=== PATIENT | female | born 2000 | race Caucasian/White ===

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

== ENCOUNTER 2018-02-13 07:50 | Emergency (ER) | payer MEDICAID ==
[2018-02-13 08:19] LABS: HCG URINE POSITIVE (NEGATIVE)
[2018-02-13 08:41] LABS: APPEARANCE CLOUDY (CLEAR); BILIRUBIN NEGATIVE (NEGATIVE); COLOR DK YELLOW (YELLOW); GLUCOSE NEGATIVE (NEGATIVE); KETONE LARGE mg/dL (NEGATIVE); NITRITE NEGATIVE (NEGATIVE); PROTEIN 3+ mg/dL (NEGATIVE); SPECIFIC GRAVITY 1.025 (1.005-1.020); UROBILINOGEN NORMAL (NORMAL)
[2018-02-13 08:43] LABS: BACTERIA MODERATE /hpf (NONE SEEN); MUCUS >1+ /lpf (NONE SEEN); RED CELLS - URINE 25-50 /hpf (0-5); WHITE CELLS - URINE >50 /hpf (0-5)
== END 2018-02-13 08:55 | disposition home or self-care (01) ==
LOC: D.ER 07:50
PROVIDERS: Emergency Medicine
DX: R31.9 Hematuria, unspecified (principal); N39.0 Urinary tract infection, site not specified

== ENCOUNTER 2018-03-01 16:04 | Emergency (ER) | payer MEDICAID ==
[~2018-03-01] VITALS: Ht 170.2 cm; Wt 79.5 kg
[2018-03-01 16:09] VITALS: Ht 170.2 cm; Wt 79.5 kg
[2018-03-01 18:47] LABS: APPEARANCE CLEAR (CLEAR); BILIRUBIN NEGATIVE (NEGATIVE); COLOR STRAW (YELLOW); GLUCOSE NEGATIVE (NEGATIVE); KETONE NEGATIVE (NEGATIVE); NITRITE NEGATIVE (NEGATIVE); PROTEIN NEGATIVE (NEGATIVE); UROBILINOGEN NORMAL (NORMAL)
[2018-03-01 18:51] LABS: BASOPHILS 0.4 % (0-2); EOSINOPHILS 2.3 % (0-7); HEMATOCRIT 32.9 % (36.0-48.0); HEMOGLOBIN 10.3 g/dL (12-16); IMMATURE GRANULOCYTES 0.1 % (0-5); MCH 25.1 pg (26.0-34.0); MCHC 31.3 g/dL (31.0-37.0); MCV 80.2 fL (80.0-100.0); MEAN PLATELET VOLUME 10.4 fL (7.4-10.4); MONOCYTES 7.9 % (2-11); NEUTROPHILS 57.3 % (40-80); PLATELET COUNT 306 10x3/uL (130-400); RDW 14.3 % (11.5-14.5); WBC 7.4 10x3/uL (4.8-10.8)
[2018-03-01 19:07] LABS: ALBUMIN 3.5 g/dL (3.4-5.0); ALKALINE PHOSPHATASE 56 U/L (46-116); ALT (SGPT) 19 U/L (10-68); CALC OSMOLALITY 274 mosm/kg (275-300); CALCIUM 8.9 mg/dL (8.5-10.1); CARBON DIOXIDE 24.9 mmol/L (21.0-32.0); CHLORIDE - SERUM 104 mmol/L (98-107); CREATININE - SERUM 0.6 mg/dL (0.6-1.3); GLUCOSE 86 mg/dL (74-106); PROTEIN - SERUM 6.7 g/dL (6.4-8.2); SODIUM 139 mmol/L (136-145); UREA NITROGEN 8 mg/dL (7-18); eGFR NON AFRICAN AMERICAN > 90 mL/min (90-120)
[2018-03-01 19:10] LABS: BILIRUBIN - TOTAL 0.09 mg/dL (0.2-1.3)
[2018-03-01 19:32] LABS: HCG - QUANTITATIVE (MATERNAL) 21852 mIU/mL
[2018-03-01 21:54] VITALS: BP 131/85
== END 2018-03-01 21:48 | disposition home or self-care (01) ==
LOC: D.ER 16:04
PROVIDERS: Emergency Medicine
DX: O20.0 Threatened abortion (principal); Z3A.08 8 weeks gestation of pregnancy; F17.200 Nicotine dependence, unspecified, uncomplicated; R10.9 Unspecified abdominal pain

== ENCOUNTER 2018-03-05 17:54 | Emergency (ER) | payer MEDICAID ==
[~2018-03-05] VITALS: Ht 170.2 cm; Wt 79.5 kg
[2018-03-05 18:25] VITALS: Ht 170.2 cm; Wt 79.5 kg
[2018-03-05 18:52] LABS: BASOPHILS 0.4 % (0-2); EOSINOPHILS 2.7 % (0-7); HEMATOCRIT 31.3 % (36.0-48.0); IMMATURE GRANULOCYTES 0.2 % (0-5); LYMPHOCYTES 32.5 % (15-50); MCH 25.3 pg (26.0-34.0); MCHC 31.9 g/dL (31.0-37.0); MEAN PLATELET VOLUME 10.3 fL (7.4-10.4); NEUTROPHILS 56.2 % (40-80); PLATELET COUNT 303 10x3/uL (130-400); RBC 3.96 10x6/uL (4.00-5.40); RDW 14.5 % (11.5-14.5); WBC 5.6 10x3/uL (4.8-10.8)
[2018-03-05 18:58] LABS: APPEARANCE CLOUDY (CLEAR); BILIRUBIN NEGATIVE (NEGATIVE); COLOR YELLOW (YELLOW); GLUCOSE NEGATIVE (NEGATIVE); KETONE NEGATIVE (NEGATIVE); NITRITE NEGATIVE (NEGATIVE); PROTEIN NEGATIVE (NEGATIVE); UROBILINOGEN NORMAL (NORMAL)
[2018-03-05 18:59] LABS: BACTERIA MODERATE /hpf (NONE SEEN); RED CELLS - URINE 0-5 /hpf (0-5); WHITE CELLS - URINE 0-5 /hpf (0-5)
[2018-03-05 19:17] LABS: ALBUMIN 3.7 g/dL (3.4-5.0); ALKALINE PHOSPHATASE 68 U/L (46-116); ALT (SGPT) 18 U/L (10-68); CALC OSMOLALITY 279 mosm/kg (275-300); CALCIUM 9.3 mg/dL (8.5-10.1); CHLORIDE - SERUM 106 mmol/L (98-107); CREATININE - SERUM 0.7 mg/dL (0.6-1.3); GLUCOSE 91 mg/dL (74-106); POTASSIUM - SERUM 3.8 mmol/L (3.5-5.1); PROTEIN - SERUM 6.6 g/dL (6.4-8.2); SODIUM 141 mmol/L (136-145); UREA NITROGEN 10 mg/dL (7-18); eGFR NON AFRICAN AMERICAN > 90 mL/min (90-120)
[2018-03-05 19:38] LABS: HCG - QUANTITATIVE (MATERNAL) 17101 mIU/mL
[2018-03-05] MEDS ORDERED: MACROBID100 MG PO (23:39)
[2018-03-06 00:55] VITALS: BP 123/79
== END 2018-03-06 00:56 | disposition home or self-care (01) ==
LOC: D.ER 17:54
PROVIDERS: Family Medicine
DX: O20.0 Threatened abortion (principal); Z3A.01 Less than 8 weeks gestation of pregnancy; N39.0 Urinary tract infection, site not specified

== ENCOUNTER 2018-11-01 21:48 | Emergency (ER) | payer MEDICAID ==
[~2018-11-01 21:48] MED LIST: MACROBID100 MG PO
[2018-11-01 21:53] VITALS: Ht 170.2 cm
[2018-11-01 22:24] LABS: BASOPHILS 0.1 % (0-2); EOSINOPHILS 0.8 % (0-7); HEMATOCRIT 33.9 % (36.0-48.0); HEMOGLOBIN 11.4 g/dL (12-16); IMMATURE GRANULOCYTES 0.3 % (0-5); LYMPHOCYTES 12.9 % (15-50); MCH 26.8 pg (26.0-34.0); MCHC 33.6 g/dL (31.0-37.0); MCV 79.6 fL (80.0-100.0); MEAN PLATELET VOLUME 10.5 fL (7.4-10.4); MONOCYTES 4.2 % (2-11); NEUTROPHILS 81.7 % (40-80); RBC 4.26 10x6/uL (4.00-5.40); RDW 15.2 % (11.5-14.5); WBC 7.8 10x3/uL (4.8-10.8)
[2018-11-01 22:26] LABS: PLATELET COUNT 221 10x3/uL (130-400)
[2018-11-01 22:44] LABS: ALBUMIN 3.4 g/dL (3.4-5.0); ALKALINE PHOSPHATASE 63 U/L (46-116); ALT (SGPT) 44 U/L (10-68); BILIRUBIN - TOTAL 0.25 mg/dL (0.2-1.3); CALC OSMOLALITY 270 mosm/kg (275-300); CALCIUM 8.6 mg/dL (8.5-10.1); CHLORIDE - SERUM 102 mmol/L (98-107); CREATININE - SERUM 0.5 mg/dL (0.6-1.3); GLUCOSE 94 mg/dL (74-106); POTASSIUM - SERUM 3.4 mmol/L (3.5-5.1); PROTEIN - SERUM 6.9 g/dL (6.4-8.2); SODIUM 136 mmol/L (136-145); UREA NITROGEN 9 mg/dL (7-18); eGFR NON AFRICAN AMERICAN > 90 mL/min (90-120)
[2018-11-01 23:10] LABS: AMYLASE - SERUM 46 U/L (25-115); HCG - QUANTITATIVE (MATERNAL) 81088 mIU/mL; LIPASE 82 U/L (73-393)
[2018-11-01 23:11] LABS: TROPONIN-I < 0.017 ng/mL (0.000-0.060)
[2018-11-01 23:18] LABS: APPEARANCE CLOUDY (CLEAR); BACTERIA NONE SEEN /hpf (NONE SEEN); BILIRUBIN NEGATIVE (NEGATIVE); COLOR YELLOW (YELLOW); GLUCOSE NEGATIVE (NEGATIVE); KETONE SMALL mg/dL (NEGATIVE); NITRITE NEGATIVE (NEGATIVE); PROTEIN TRACE mg/dL (NEGATIVE); RED CELLS - URINE NONE SEEN /hpf (0-5); UROBILINOGEN NORMAL (NORMAL); WHITE CELLS - URINE 0-5 /hpf (0-5)
[2018-11-01 23:19] LABS: MUCUS <1+ /lpf (NONE SEEN); URIC ACID CRYSTALS OCC /hpf (NONE SEEN)
[2018-11-02] MEDS ORDERED: MACROBID100 MG PO (00:24)
[2018-11-02 00:34] VITALS: BP 119/69
== END 2018-11-02 00:36 | disposition home or self-care (01) ==
LOC: D.ER 21:48
PROVIDERS: Family Medicine
DX: O23.41 Unspecified infection of urinary tract in pregnancy, first trimester (principal); Z3A.12 12 weeks gestation of pregnancy; R11.0 Nausea

== ENCOUNTER → 2018-11-24 | Emergency (ER) | payer MEDICAID ==
[~2018-11-24] VITALS: Ht 170.2 cm; Wt 68.2 kg
[2018-11-24 11:25] VITALS: BP 131/78; Ht 170.2 cm; Wt 68.2 kg
[2018-11-24 11:51] LABS: BASOPHILS 0.1 % (0-2); EOSINOPHILS 1.1 % (0-7); HEMATOCRIT 34.4 % (36.0-48.0); HEMOGLOBIN 11.5 g/dL (12-16); IMMATURE GRANULOCYTES 0.5 % (0-5); LYMPHOCYTES 18.5 % (15-50); MCH 26.9 pg (26.0-34.0); MCHC 33.4 g/dL (31.0-37.0); MCV 80.6 fL (80.0-100.0); MEAN PLATELET VOLUME 10.5 fL (7.4-10.4); MONOCYTES 4.8 % (2-11); RBC 4.27 10x6/uL (4.00-5.40); WBC 10.3 10x3/uL (4.8-10.8)
[2018-11-24 11:53] LABS: PLATELET COUNT 268 10x3/uL (130-400)
[2018-11-24 12:05] LABS: ALBUMIN 3.2 g/dL (3.4-5.0); ALKALINE PHOSPHATASE 59 U/L (46-116); ALT (SGPT) 36 U/L (10-68); BILIRUBIN - TOTAL 0.13 mg/dL (0.2-1.3); CALC OSMOLALITY 271 mosm/kg (275-300); CALCIUM 8.6 mg/dL (8.5-10.1); CHLORIDE - SERUM 103 mmol/L (98-107); CREATININE - SERUM 0.6 mg/dL (0.6-1.3); GLUCOSE 121 mg/dL (74-106); POTASSIUM - SERUM 3.4 mmol/L (3.5-5.1); PROTEIN - SERUM 6.9 g/dL (6.4-8.2); SODIUM 136 mmol/L (136-145); UREA NITROGEN 9 mg/dL (7-18); eGFR NON AFRICAN AMERICAN > 90 mL/min (90-120)
[2018-11-24 12:24] LABS: APPEARANCE SL CLDY (CLEAR); BACTERIA MODERATE /hpf (NONE SEEN); BILIRUBIN NEGATIVE (NEGATIVE); COLOR YELLOW (YELLOW); EPITHELIAL CELLS 0-5 /hpf (0-5); GLUCOSE NEGATIVE (NEGATIVE); KETONE NEGATIVE (NEGATIVE); MUCUS <1+ /lpf (NONE SEEN); NITRITE NEGATIVE (NEGATIVE); PROTEIN NEGATIVE (NEGATIVE); SPECIFIC GRAVITY 1.015 (1.005-1.020); UROBILINOGEN NORMAL (NORMAL); WHITE CELLS - URINE OCC /hpf (0-5)
[2018-11-24 12:30] LABS: HCG - QUANTITATIVE (MATERNAL) 35204 mIU/mL
== END | disposition home or self-care (01) ==
LOC: D.ER 11:21
PROVIDERS: Family Medicine
DX: O26.852 Spotting complicating pregnancy, second trimester (principal); Z3A.15 15 weeks gestation of pregnancy; R10.2 Pelvic and perineal pain

== ENCOUNTER 2019-01-18 11:35 | Inpatient (IN) | payer MEDICAID ==
[~2019-01-18] VITALS: Ht 172.7 cm; Wt 87.7 kg
--- NOTE | 2019-01-18 14:39 | MORECARE ---
CASE MANAGEMENT DISCHARGE SUMMARY PATIENT: JUANI FERMIN UNIT: [id number] ADM DATE: 01/18/19 AGE: 18 : 98 SEX: F ROOM/BED: D.1275 AUTHOR: ROBSON CROOKS PHYSICIAN: REFERRING PHYSICIAN: LARRY ESPINOSA MD DATE OF SERVICE: 01/18/19 Discharge Plan Patient Name: JUANI FERMIN Facility: [facility]:[place] : 2000 Planned Disposition: Home Anticipated Discharge Date: Discharge Date: Expected LOS: Initial Reviewer: [email or web address] Initial Review Date: 01/18/2019 Generated: 01/18/19 3:39 pm Patient Name: JUANI FERMIN Page 20410 at 1439 All edits/amendments must be made on the electronic document DICTATION DATE: 01/18/191438 PORTFOLIO ADMINISTRATOR: JADA 01/18/19 1439 RPT#: [id number] DC DATE: STATUS: ADM IN [facility] [address] [place] [address] END OF REPORT
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
[2019-01-18 15:59] LABS: HEMATOCRIT 36.1 % (36.0-48.0); HEMOGLOBIN 12.2 g/dL (12-16); MCH 27.9 pg (26.0-34.0); MCHC 33.8 g/dL (31.0-37.0); MCV 82.4 fL (80.0-100.0); MEAN PLATELET VOLUME 11.5 fL (7.4-10.4); RBC 4.38 10x6/uL (4.00-5.40); RDW 14.6 % (11.5-14.5); WBC 11.2 10x3/uL (4.8-10.8)
[2019-01-18] MEDS ORDERED: PRENAVITE1 TAB PO (16:22)
[2019-01-18 17:02] VITALS: BP 128/72; BMI 29.4
[2019-01-18 17:52] LABS: UDS - AMPHET NEGATIVE QUAL (NEGATIVE); UDS - BARB NEGATIVE QUAL (NEGATIVE); UDS - BENZO NEGATIVE QUAL (NEGATIVE); UDS - COCAINE NEGATIVE QUAL (NEGATIVE); UDS - OPIATE NEGATIVE QUAL (NEGATIVE); UDS - PCP NEGATIVE QUAL (NEGATIVE); UDS - THC NEGATIVE QUAL (NEGATIVE)
[2019-01-19 06:49] VITALS: Ht 172.7 cm; Wt 87.7 kg
[2019-01-19 19:42] VITALS: BP 127/80
--- NOTE | 2019-01-19 19:42 | NUR ---
pt re'd at the bedisde with multiple family members at the bedside. assessmentin centriciry at this time. pt stable and without complaints. jace yeh rn
--- NOTE | 2019-01-19 20:20 | NUR ---
pt saline locked and up to shower with minimal assistance. sitter at the bedside. mother in the restroom with patient to assist with shower at this time. jace yeh rn
--- NOTE | 2019-01-19 20:52 | NUR ---
TORADOL, CYTOTEC, AND KLOPIN GIVEN AT THIS TIME PER MD ORDER. WILL CONTINUE TO MONITOR PT PROGRESS THIS SHIFT. PT TRANSPORTED TO ROOM 1273. Claire MENENDEZ RN.
--- NOTE | 2019-01-19 21:00 | NUR ---
PT REQUESTING SANDWICH TRAY. SANDWICH TRAY GIBEN TO PATIENT AT THIS TIME. Claire MENENDEZ, RN
--- NOTE | 2019-01-19 21:39 | NUR ---
PT STATES THAT SHE IS NAUSEATED. PT MEDICATED WITH ZOFRAN 4 MG IV. WILL CONTIUE TO MONITOR. Claire MENENDEZ RN
--- NOTE | 2019-01-19 21:55 | NUR ---
PT STATES THAT SHE IS STILL HURTING. PAIN LEVEL 8 WITH CRAMPS. REQUESTING ADDITIONAL PAIN MEDICATION. Claire MENENDEZ RN
--- NOTE | 2019-01-19 22:09 | NUR ---
PT MEDICATED WITH NORCO FOR PAIN AT THIS TIME. WILL CONTIUE TO MONITOR PAIN THIS SHIFT. Claire MENENDEZ RN
--- NOTE | 2019-01-19 22:54 | NUR ---
PT MEDICATED WITH AMBIEN AT THIS TIME FOR SLEEP. Claire MENENDEZ RN
[2019-01-19 22:58] VITALS: BP 115/60
--- NOTE | 2019-01-19 23:00 | NUR ---
WENT TO PATIENT TO SIGN HOME CONSENTS AT THIS TIME.PT NOW REQUESTING AN AUTOPSY. PT STATES THAT IF IT COSTS A LOT OF MONEY THEN SHE WOULD NOT DO IT. FAMILY REQUEST THAT THIS NURSE TRY TO FIND OUT APPROX HOW HUCH AN AUTOPSY WOULD COST THE FAMILY. Clarie MENENDEZ RN
--- NOTE | 2019-01-19 23:17 | NUR ---
SARAH LAZOHOT OILER CALLED AT THIS TIME FOR GUIDANCE ON PTS WISHES FOR AN AUTOPSY ON HER IUFD, SARAH STATES THAT SHE ISNT SURE BUT SHE THINKS YOU WOULD CALL THE POURED PIPE MAKER. SHE STATES TO CALL HER BACK AFTER TO LET HER KNOW WHAT THE POURED PIPE MAKER SAYS.
--- NOTE | 2019-01-19 23:30 | NUR ---
WENT IN TO DISCUSS AUTOPSY WITH THE PATIENT AT THIS TIME. PT IS ASLEEP. DID NOT AWAKEN. Claire MENENDEZ RN
--- NOTE | 2019-01-20 01:29 | NUR ---
pt medicated at this time with Toradol. jace yeh rn
--- NOTE | 2019-01-20 03:30 | NUR ---
PT RESTING AT THIS TIME. NOT AWAKENED AT THIS TIME. SITTER AT THE BEDSIDE. Claire MENENDEZ RN
--- NOTE | 2019-01-20 07:26 | OP ---
PATIENT NAME: JUANI FERMIN MEDICAL RECORD: [id number] :[birth year] LOCATION:[facility]1273 ADMISSION DATE:01/18/19 SURGEON: LARRY ESPINOSA MD DATE OF OPERATION: 01/19/2019 PREDELIVERY DIAGNOSES: 1. demise at 23 weeks' gestation. 2. Major depressive disorder. POSTOPERATIVE DIAGNOSES: 1. demise at 23 weeks' gestation. 2. Major depressive disorder. PROCEDURE: Medical induction of labor. ATTENDING SURGEON: Larry Espinosa MD ANESTHESIA: None. FINDINGS: Nonviable male infant appearing 22-23 weeks gestational age. The placenta was spontaneous and intact. Clear fluid. No gross abnormalities detected. ESTIMATED BLOOD LOSS: 250 cc. DISPOSITION: with mother, for grieving . Placenta to pathology. The patient will have a sitter until discharge arranged for mental health evaluation. TRANSINT:[id number] Voice Confirmation ID: [id number] DOCUMENT ID: [id number] LARRY ESPINOSA MD at 0726 CC: [id number] DICTATION DATE: 01/19/191908 LEASE ADMINISTRATION SUPERVISOR: 01/19/19 2308 ADM IN [facility] [address] [place] [address]
--- NOTE | 2019-01-20 07:30 | NUR ---
AM ASSESSMENT, PT APPEARS TO BE HANDLING POST DELIVERY WITH SUPPORT FROM FOB AND HER FAMILY. SHE IS TEARFUL WHICH IS EXPECTED. PT UNDERSTANDS THAT SITTER WILL BE PRESENT TODAY UNTIL POST DELIVERY EVAL FROM JOANIE.
--- NOTE | 2019-01-20 10:45 | NUR ---
CALLED TO ROOM, PT HAS IN ROOM THAT WAS BROUGHT IN BY Xavier WELLS RN. WISHES FOR TO BE TAKEN NOW AND STATES THAT HER DAD IS GOING TO CALL HOME BUT PLEASE TELL HER BEFORE THEY LEAVE HOSPITAL WITH INFANT.
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
--- NOTE | 2019-01-20 12:07 | NUR ---
TORADOL GIVEN PER ORDERS FOR PAIN RATED 6/10 AT THIS TIME DESCRIBED CRAMPING. NO FURTHER NEEDS AT THIS TIME. FAMILY AND STAFF SITTER REMAIN AT BEDSIDE.
--- NOTE | 2019-01-20 12:15 | NUR ---
SUZIE RESP ON UNIT AND TAKEN IN TO SPEAK WITH PT.
--- NOTE | 2019-01-20 12:15 | NUR ---
INFANT IS RELEASE TO HOME.
--- NOTE | 2019-01-20 13:30 | NUR ---
PT UP TO SHOWER PER REQUEST. SHE IS ENCOURAGED TO DRESS IN HER OWN CLOTHING. SALINE LOCKED REMOVED FROM RIGHT AC, CATH NOTED TO BE INTACT. SITTER REMAINS AT BEDSIDE.
--- NOTE | 2019-01-20 14:18 | NUR ---
LARGE CUP OF ICE WITH LEMON WICHITA SODA PER REQUEST. RATES PAIN/CRAMPING AT 4/10. DENIES NEEDS AT THIS TIME, TALKING WITH SIG OTHER.
--- NOTE | 2019-01-20 15:00 | NUR ---
DR STYLES IN TO REEVALUATE PATIENT POST DELIVERY.
--- NOTE | 2019-01-20 15:45 | NUR ---
JAVA TECH LEAD IN VISITING WITH PT, SHE PROVIDES INFO ON OUTPATIENT TREATMENT FACILITY FOR PT POST DISCHARGE. PT DENIES NEEDS AT THIS TIME. MULTIPLE FAMILY PRESENT.
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
--- NOTE | 2019-01-20 15:50 | NUR ---
SW SPOKE TO PT ABOUT OUT PATIENT SERVICES. SW GAVE PT HANDOUT ON [facility] OUTPATIENT WALK IN CLINIC. PT AGREED TO GO TO WALK IN CLINIC AND FOLLOW UP FOR MENTAL HEALTH ISSUES.
--- NOTE | 2019-01-20 16:30 | NUR ---
THIS RN TO BEDSIDE TO EXPLAIN THAT DR ESPINOSA WAS IN SURGERY AT THIS TIME AND WOULD BE GIVEN REPORT AND DISCHARGE REQUESTED SOON HE WAS AVAILABLE. PT STATES HER UNDERSTANDING AND DENIES NEEDS. CALL LIGHT IN REACH.
--- NOTE | 2019-01-20 18:00 | NUR ---
PT CALLS OUT REQUESTING PAIN MEDS.
--- NOTE | 2019-01-20 18:20 | NUR ---
UPON ENTERING ROOM LIGHTS ARE OUT AND PT APPEARS TO BE SLEEPING, SHE RESPONDS VERY DROWSY BUT DENIES WANTING TO WAKE UP AND TAKE MEDS. ASK HER TO CALL WHEN SHE IS READY. MEDS RETURNED TO [facility].
--- NOTE | 2019-01-20 19:55 | NUR ---
SPOKE WITH MD REGARDING PT DISCHARGE. ORDER TO DISCHARGE REC'D. INSTRUCTED TO INFORM PT TO CALL FOR FOLLOWUP VIST IN COUPLE OF WEEKS FOR VIST. PT MAY ALSO TAKE TYLENOL AND MOTRIN AND NEEED FOR PAIN. Claire MENENDEZ RN
--- NOTE | 2019-01-20 19:55 | NUR ---
SO AT DESK. STATES PT ASKING FOR PAIN MED. THIS NURSE TO ROOM. PT TEARFUL. C/O ABDOMINAL CRAMPING OF "8" ON 0-10 PAIN SCALE. NORCO 5/325 AND TORADOL 10 MG GIVEN PO ORDERED. PT INSTRUCTED ON MEDS.
[2019-01-20 21:46] VITALS: BP 134/81
--- NOTE | 2019-01-20 21:46 | NUR ---
PT REC'D IN BED AT THIS TIME. FULLY DRESSIED AWAITING DISCHARGE. PAIN LEVEL 4 AT THIS TIME. VSS. LUNGS CLEAR. BS+. FUNDUS FIRM AND MIDLINE AT U/2. SCANT LOCHIA NOTED. NO ACUTE DISTRESS NOTED AT THIS TIME. CALL LIGHT IN PT REACH. S/O AT THE BEDSIDE. Claire MENENDEZ RN
--- NOTE | 2019-01-20 22:07 | NUR ---
SCIENTIFIC INVESTIGATOR IN PT ROOM FOR SUICIDE SCREEN AT THIS TIME. Claire SESAY RN
--- NOTE | 2019-01-20 22:25 | NUR ---
PT DISCHARGED AMBULATORY IN STABLE CONDITION AT THIS TIME. COPY OF DISCHARGE PAPER GIVEN AND REVIEWED WITH PATIENT AND UNDERSTANDING VERBALIZED AT THIS TIME. Claire MENENDEZ RN
--- NOTE | 2019-01-21 14:46 | CN ---
PATIENT NAME:JUANI FERMIN MEDICAL RECORD: [id number] : [birth year] LOCATION:[facility] D.1273 ADMIT DATE: 01/18/19 ACCOUNT: [id number] CONSULTING PHYSICIAN: ANGELO OVALLES MD REFERRING PHYSICIAN: LARRY ESPINOSA MD DATE OF CONSULTATION: 01/20/2019 SUBJECTIVE: The patient's case was discussed with staff. She has no new complaint. OBJECTIVE: The patient is sad. She delivered a stillborn baby last night. She is having some physical discomfort, but emotionally she is coping very well. She reiterates to me her statements that she was just upset when she said she was going to kill herself. She says she is not going to do this. 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 She has a support system with a boyfriend and her father who are present in the room. She denies any thoughts of harming herself or others. ASSESSMENT: Borderline personality disorder. PLAN: The patient can be reasonably transitioned out of the hospital today from a psychiatric standpoint. If she is clear obstetrically there, then there is no reason to keep her. You can discontinue the sitter of course at any time. The sitter does not need to stay with her until she leaves the hospital. I am going to recommend followup and that should be for outpatient mental health treatment. The patient tells me she is willing to go, the problem is that she will not have Medicaid now that she has delivered the baby and she cannot afford it. I have spoken with the infantry unit leader here on the behavioral unit who says she can go to the [facility] walk-in clinic and be seen there. She is going to give her the information about how she can access that. TRANSINT:[id number] Voice Confirmation ID: [id number] DOCUMENT ID: [id number] ANGELO OVALLES MD at 1446 CC: [id number] DICTATION DATE: 01/20/19 1553 DIETITIAN CHIEF: 01/20/19 1735 DIS IN 01/20/19 [id number] [place] [address]
== END 2019-01-20 22:25 | disposition home or self-care (01) | DRG 806 ==
LOC: D.LD 11:35
PROVIDERS: Obstetrics & Gynecology; ADMIT Obstetrics & Gynecology; ATTEND Obstetrics & Gynecology
PROC: 3E033VJ Introduction of Other Hormone into Peripheral Vein, Percutaneous Approach (ICD-10-PCS; principal; 2019-01-19)
PROC: 10E0XZZ Delivery of Products of Conception, External Approach (ICD-10-PCS; 2019-01-19)
DX: O36.4XX0 Maternal care for intrauterine death, not applicable or unspecified (principal); R45.851 Suicidal ideations; Z37.1 Single stillbirth; Z3A.23 23 weeks gestation of pregnancy; F60.3 Borderline personality disorder; O99.345 Other mental disorders complicating the puerperium; F32.9 Major depressive disorder, single episode, unspecified; F43.25 Adjustment disorder with mixed disturbance of emotions and conduct

== ENCOUNTER 2019-01-21 22:30 | Emergency (ER) | payer MEDICAID ==
[~2019-01-21] VITALS: Ht 172.7 cm; Wt 86.4 kg
[~2019-01-21 22:30] MED LIST changes: +PRENAVITE1 TAB PO
[2019-01-21 22:49] VITALS: Ht 172.7 cm; Wt 86.4 kg
[2019-01-22 00:01] LABS: BASOPHILS 0.1 % (0-2); EOSINOPHILS 0.4 % (0-7); HEMATOCRIT 35.5 % (36.0-48.0); HEMOGLOBIN 11.9 g/dL (12-16); IMMATURE GRANULOCYTES 0.3 % (0-5); LYMPHOCYTES 9.4 % (15-50); MCH 27.9 pg (26.0-34.0); MCHC 33.5 g/dL (31.0-37.0); MCV 83.3 fL (80.0-100.0); MEAN PLATELET VOLUME 11.3 fL (7.4-10.4); MONOCYTES 5.8 % (2-11); PLATELET COUNT 222 10x3/uL (130-400); RBC 4.26 10x6/uL (4.00-5.40); RDW 15.1 % (11.5-14.5); WBC 10.3 10x3/uL (4.8-10.8)
[2019-01-22 00:07] LABS: ALBUMIN 2.8 g/dL (3.4-5.0); ALKALINE PHOSPHATASE 80 U/L (46-116); ALT (SGPT) 26 U/L (10-68); BILIRUBIN - TOTAL 0.34 mg/dL (0.2-1.3); CALC OSMOLALITY 270 mosm/kg (275-300); CARBON DIOXIDE 21.8 mmol/L (21.0-32.0); CHLORIDE - SERUM 105 mmol/L (98-107); CREATININE - SERUM 0.6 mg/dL (0.6-1.3); GLUCOSE 86 mg/dL (74-106); POTASSIUM - SERUM 3.5 mmol/L (3.5-5.1); PROTEIN - SERUM 6.6 g/dL (6.4-8.2); SODIUM 137 mmol/L (136-145); UREA NITROGEN 6 mg/dL (7-18); eGFR NON AFRICAN AMERICAN > 90 mL/min (90-120)
[2019-01-22 00:32] LABS: CALCIUM 8.8 mg/dL (8.5-10.1)
[2019-01-22 01:26] LABS: APPEARANCE CLOUDY (CLEAR); COLOR PINK (YELLOW); SPECIFIC GRAVITY 1.005 (1.005-1.020)
[2019-01-22 01:27] LABS: BACTERIA FEW /hpf (NONE SEEN); BILIRUBIN NEGATIVE (NEGATIVE); GLUCOSE NEGATIVE (NEGATIVE); KETONE NEGATIVE (NEGATIVE); NITRITE NEGATIVE (NEGATIVE); PROTEIN 1+ mg/dL (NEGATIVE); UROBILINOGEN NORMAL (NORMAL); WHITE CELLS - URINE 25-50 /hpf (0-5)
[2019-01-22] MEDS ORDERED: MACROBID100 MG PO (02:00)
[2019-01-22] MEDS ORDERED: TORADOL10 MG PO (02:00)
[2019-01-22 02:32] VITALS: BP 131/90
[2019-01-25 16:08] LABS: CHLAMYDIA TRACHOMATIS, NAA Negative (Negative)
== END 2019-01-22 02:32 | disposition home or self-care (01) ==
LOC: D.ER 22:30
PROVIDERS: Emergency Medicine
DX: R50.9 Fever, unspecified (principal); N61.0 Mastitis without abscess; N39.0 Urinary tract infection, site not specified

== ENCOUNTER 2019-02-16 16:11 | Emergency (ER) | payer MEDICAID ==
[~2019-02-16] VITALS: Ht 172.7 cm; Wt 84.1 kg
[~2019-02-16 16:11] MED LIST changes: +TORADOL10 MG PO
[2019-02-16 16:15] VITALS: Ht 172.7 cm; Wt 84.1 kg
[2019-02-16] MEDS ORDERED: TRAZODONE HCL150 MG PO (16:22)
[2019-02-16 16:57] LABS: APPEARANCE CLEAR (CLEAR); BILIRUBIN NEGATIVE (NEGATIVE); COLOR YELLOW (YELLOW); EPITHELIAL CELLS 0-5 /hpf (0-5); GLUCOSE NEGATIVE (NEGATIVE); KETONE NEGATIVE (NEGATIVE); NITRITE NEGATIVE (NEGATIVE); PROTEIN NEGATIVE (NEGATIVE); RED CELLS - URINE 25-50 /hpf (0-5); SPECIFIC GRAVITY 1.015 (1.005-1.020); UROBILINOGEN NORMAL (NORMAL); WHITE CELLS - URINE 0-5 /hpf (0-5)
[2019-02-16 16:58] LABS: BACTERIA FEW /hpf (NONE SEEN)
[2019-02-16 18:35] LABS: HCG URINE NEGATIVE (NEGATIVE)
[2019-02-16] MEDS ORDERED: MACROBID100 MG PO (20:08)
[2019-02-16] MEDS ORDERED: DIFLUCAN150 MG PO (20:08)
[2019-02-16 20:32] VITALS: BP 130/72
== END 2019-02-16 20:35 | disposition home or self-care (01) ==
LOC: D.ER 16:11
PROVIDERS: Emergency Medicine
DX: N39.0 Urinary tract infection, site not specified (principal); B37.9 Candidiasis, unspecified

== ENCOUNTER 2019-02-28 14:52 | Emergency (ER) | payer MEDICAID ==
[~2019-02-28] VITALS: Ht 172.7 cm; Wt 65.9 kg
[~2019-02-28 14:52] MED LIST changes: +DIFLUCAN150 MG PO; +TRAZODONE HCL150 MG PO
[2019-02-28 15:16] VITALS: Ht 172.7 cm; Wt 65.9 kg
[2019-02-28 17:01] LABS: APPEARANCE HAZY (CLEAR); BILIRUBIN NEGATIVE (NEGATIVE); COLOR YELLOW (YELLOW); GLUCOSE NEGATIVE (NEGATIVE); KETONE NEGATIVE (NEGATIVE); NITRITE NEGATIVE (NEGATIVE); PROTEIN NEGATIVE (NEGATIVE); SPECIFIC GRAVITY 1.015 (1.005-1.020); UROBILINOGEN NORMAL (NORMAL)
[2019-02-28 17:05] LABS: BACTERIA FEW /hpf (NONE SEEN); EPITHELIAL CELLS 0-5 /hpf (0-5); RED CELLS - URINE 0-5 /hpf (0-5); WHITE CELLS - URINE 25-50 /hpf (0-5)
[2019-02-28 17:06] LABS: HCG URINE NEGATIVE (NEGATIVE)
[2019-02-28] MEDS ORDERED: CIPRO500 MG PO (20:20)
[2019-02-28 21:03] VITALS: BP 118/76
== END 2019-02-28 21:03 | disposition home or self-care (01) ==
LOC: D.ER 14:52
PROVIDERS: Family Medicine
DX: A64 Unspecified sexually transmitted disease (principal); N39.0 Urinary tract infection, site not specified

== ENCOUNTER 2019-08-09 14:35 | Emergency (ER) | payer OTHER ==
[~2019-08-09] VITALS: Ht 172.7 cm; Wt 97.3 kg
[~2019-08-09 14:35] MED LIST changes: +CIPRO500 MG PO
[2019-08-09 14:43] VITALS: Ht 172.7 cm; Wt 97.3 kg
[2019-08-09] MEDS ORDERED: SMZ-TMP DS 800-1 TAB PO (17:59)
[2019-08-09] MEDS ORDERED: TYLENOL W/CODEI1 TAB PO (17:59)
[2019-08-09 18:51] VITALS: BP 132/80
== END 2019-08-09 18:44 | disposition home or self-care (01) ==
LOC: D.ER 14:35
DX: S62.631B Displaced fracture of distal phalanx of left index finger, initial encounter for open fracture (principal); X58.XXXA Exposure to other specified factors, initial encounter

== ENCOUNTER 2019-08-11 03:24 | Emergency (ER) | payer OTHER ==
[~2019-08-11] VITALS: Ht 172.7 cm; Wt 97.3 kg
[~2019-08-11 03:24] MED LIST changes: +SMZ-TMP DS 800-1 TAB PO; +TYLENOL W/CODEI1 TAB PO
[2019-08-11 03:30] VITALS: Ht 172.7 cm; Wt 97.3 kg
[2019-08-11] MEDS ORDERED: LOMOTIL 2.5-0.1 EAC1 PO (04:47)
[2019-08-11] MEDS ORDERED: ZOFRAN ODT4 MG/UDTAB PO (04:47)
[2019-08-11 04:58] VITALS: BP 109/72
== END 2019-08-11 04:58 | disposition home or self-care (01) ==
LOC: D.ER 03:24
DX: R11.2 Nausea with vomiting, unspecified (principal); R19.7 Diarrhea, unspecified

== ENCOUNTER 2019-12-26 11:14 | Emergency (ER) | payer MEDICAID ==
[~2019-12-26] VITALS: Ht 172.7 cm; Wt 85.9 kg
[~2019-12-26 11:14] MED LIST changes: +LOMOTIL 2.5-0.1 EAC1 PO; +ZOFRAN ODT4 MG/UDTAB PO
[2019-12-26 11:22] VITALS: Ht 172.7 cm; Wt 85.9 kg
[2019-12-26 11:42] LABS: BASOPHILS 0.5 % (0-2); HEMOGLOBIN 13.6 g/dL (12-16); IMMATURE GRANULOCYTES 0.2 % (0-5); LYMPHOCYTES 18.9 % (15-50); MCH 26.6 pg (26.0-34.0); MCHC 31.6 g/dL (31.0-37.0); MCV 84.1 fL (80.0-100.0); MEAN PLATELET VOLUME 10.4 fL (7.4-10.4); MONOCYTES 5.5 % (2-11); NEUTROPHILS 72.9 % (40-80); RBC 5.11 10x6/uL (4.00-5.40); WBC 8.9 10x3/uL (4.8-10.8)
[2019-12-26 11:45] LABS: PLATELET COUNT 383 10x3/uL (130-400)
[2019-12-26 11:52] LABS: ANION GAP 13.4 mmol/L (8-16); CALCIUM 9.1 mg/dL (8.5-10.1); CARBON DIOXIDE 28.9 mmol/L (21.0-32.0); POTASSIUM - SERUM 3.3 mmol/L (3.5-5.1)
[2019-12-26 11:57] LABS: HCG URINE NEGATIVE (NEGATIVE)
[2019-12-26 11:58] LABS: BILIRUBIN NEGATIVE (NEGATIVE); GLUCOSE NEGATIVE (NEGATIVE); KETONE NEGATIVE (NEGATIVE); NITRITE NEGATIVE (NEGATIVE); RED CELLS - URINE >50 /hpf (0-5); UROBILINOGEN NORMAL (NORMAL); WHITE CELLS - URINE >50 /hpf (NEGATIVE)
[2019-12-26 11:59] LABS: ALBUMIN 4.2 g/dL (3.4-5.0); BACTERIA MODERATE /hpf (NEGATIVE); BILIRUBIN - TOTAL 0.56 mg/dL (0.2-1.3); PROTEIN - SERUM 7.6 g/dL (6.4-8.2)
[2019-12-26] MEDS ORDERED: SMZ-TMP DS 800-1 TAB PO (12:22)
[2019-12-26 12:40] VITALS: BP 132/78
== END 2019-12-26 12:41 | disposition home or self-care (01) ==
LOC: D.ER 11:14
PROVIDERS: Emergency Medicine
DX: N30.00 Acute cystitis without hematuria (principal)

== ENCOUNTER 2020-02-28 21:01 | Emergency (ER) | payer OTHER ==
[~2020-02-28] VITALS: Ht 172.7 cm; Wt 95.5 kg
[2020-02-28 21:08] VITALS: Ht 172.7 cm; Wt 95.5 kg
[2020-02-28 22:27] LABS: BASOPHILS 0.3 % (0-2); HEMOGLOBIN 11.1 g/dL (12-16); IMMATURE GRANULOCYTES 0.3 % (0-5); LYMPHOCYTES 23.2 % (15-50); MCH 26.6 pg (26.0-34.0); MCHC 30.8 g/dL (31.0-37.0); MCV 86.3 fL (80.0-100.0); MEAN PLATELET VOLUME 10.2 fL (7.4-10.4); MONOCYTES 7.2 % (2-11); PLATELET COUNT 342 10x3/uL (130-400); RBC 4.17 10x6/uL (4.00-5.40); RDW 14.5 % (11.5-14.5); WBC 7.9 10x3/uL (4.8-10.8)
[2020-02-28 22:41] LABS: ANION GAP 7.7 mmol/L (8-16); CALCIUM 8.7 mg/dL (8.5-10.1); CARBON DIOXIDE 30.1 mmol/L (21.0-32.0); POTASSIUM - SERUM 3.8 mmol/L (3.5-5.1)
[2020-02-28 22:48] LABS: ALBUMIN 3.7 g/dL (3.4-5.0); BILIRUBIN - TOTAL 0.43 mg/dL (0.2-1.3); PROTEIN - SERUM 7.1 g/dL (6.4-8.2)
[2020-02-28 22:57] LABS: HCG SERUM NEGATIVE (NEGATIVE)
[2020-02-28] MEDS ORDERED: ULTRAM50 MG PO (23:34)
[2020-02-29 00:40] VITALS: BP 133/80
== END 2020-02-29 00:40 | disposition home or self-care (01) ==
LOC: D.ER 21:01
PROVIDERS: Family Medicine
DX: M25.561 Pain in right knee (principal); Z98.890 Other specified postprocedural states

== ENCOUNTER 2020-03-13 20:36 | Inpatient (IN) | payer OTHER ==
[~2020-03-13] VITALS: Ht 172.7 cm; Wt 90.7 kg
[~2020-03-13 20:36] MED LIST changes: +ULTRAM50 MG PO
[2020-03-13] MEDS ORDERED: ZITHROMAX500 MG PO (20:45)
[2020-03-13 21:11] LABS: BASOPHILS 0.2 % (0-2); EOSINOPHILS 0.7 % (0-7); HEMATOCRIT 37.8 % (36.0-48.0); HEMOGLOBIN 12.1 g/dL (12-16); IMMATURE GRANULOCYTES 0.3 % (0-5); LYMPHOCYTES 6.2 % (15-50); MCH 26.4 pg (26.0-34.0); MCV 82.4 fL (80.0-100.0); MONOCYTES 1.3 % (2-11); NEUTROPHILS 91.3 % (40-80); RBC 4.59 10x6/uL (4.00-5.40); RDW 13.7 % (11.5-14.5); WBC 11.2 10x3/uL (4.8-10.8)
[2020-03-13 21:17] LABS: PLATELET COUNT 491 10x3/uL (130-400)
[2020-03-13 21:22] LABS: CALC OSMOLALITY 272 mosm/kg (275-300); CALCIUM 9.1 mg/dL (8.5-10.1); CARBON DIOXIDE 24.2 mmol/L (21.0-32.0); CHLORIDE - SERUM 102 mmol/L (98-107); CREATININE - SERUM 0.8 mg/dL (0.6-1.3); GLUCOSE 110 mg/dL (74-106); POTASSIUM - SERUM 4.1 mmol/L (3.5-5.1); SODIUM 136 mmol/L (136-145); UREA NITROGEN 13 mg/dL (7-18); eGFR NON AFRICAN AMERICAN > 90 mL/min (90-120)
[2020-03-13 21:28] LABS: ALBUMIN 3.9 g/dL (3.4-5.0); ALKALINE PHOSPHATASE 80 U/L (30-120); ALT (SGPT) 38 U/L (10-68); AMYLASE - SERUM 61 U/L (25-115); BILIRUBIN - TOTAL 0.19 mg/dL (0.2-1.3); PROTEIN - SERUM 7.1 g/dL (6.4-8.2)
[2020-03-13 21:53] LABS: UDS - AMPHET NEGATIVE QUAL (NEGATIVE); UDS - BARB NEGATIVE QUAL (NEGATIVE); UDS - BENZO NEGATIVE QUAL (NEGATIVE); UDS - COCAINE NEGATIVE QUAL (NEGATIVE); UDS - OPIATE NEGATIVE QUAL (NEGATIVE); UDS - PCP NEGATIVE QUAL (NEGATIVE); UDS - THC NEGATIVE QUAL (NEGATIVE)
[2020-03-13 22:10] LABS: BILIRUBIN NEGATIVE (NEGATIVE); GLUCOSE NEGATIVE (NEGATIVE); KETONE NEGATIVE (NEGATIVE); NITRITE NEGATIVE (NEGATIVE); SPECIFIC GRAVITY 1.025 (1.005-1.020); UROBILINOGEN NORMAL (NORMAL)
[2020-03-13 22:37] LABS: ERYTHROCYTE SEDIMENTATION RATE 30 mm/hr (0-20)
[2020-03-13 22:44] LABS: HCG SERUM NEGATIVE (NEGATIVE)
--- NOTE | 2020-03-13 23:47 | NUR ---
PT ARRIVED ON UNIT VIA WHEELCHAIR ESCORTED BY ER NURSE. ORIENTED TO ROOM AND CALL LIGHT. IV FLUIDS AND ZOSYN INFUSING ON ARRIVAL. POSITIONED IN BED FOR COMFORT WITH RIGHT LEG ELEVATED WITH PILLOW. IV TO LEFT AC PATENT. RIGHT KNEE WARM TO THE TOUCH WITH X3 HEALED LAP SITES.
[2020-03-14] VITALS (7 sets, daily range): BP systolic 110–127; BP diastolic 61–83; Ht 172.7 cm; Wt 90.7 kg
--- NOTE | 2020-03-14 00:03 | NUR ---
GAVE MORPHINE 4 MG AND ZOFRAN 4 MG IVP PER REQUEST FOR PAIN AND NAUSEA, PER PRN ORDER. SCANNED ROCEPHIN AND VANCOMYCIN AND WILL RUN AFTER ZOSYN.
--- NOTE | 2020-03-14 00:21 | NUR ---
ADMISSION ASSESSMENT AND HISTORY COMPLETE.
[2020-03-14 04:27] LABS: BASOPHILS 0.3 % (0-2); EOSINOPHILS 2.1 % (0-7); HEMATOCRIT 34.5 % (36.0-48.0); IMMATURE GRANULOCYTES 0.4 % (0-5); LYMPHOCYTES 18.1 % (15-50); MCH 26.3 pg (26.0-34.0); MCHC 31.9 g/dL (31.0-37.0); MCV 82.3 fL (80.0-100.0); MEAN PLATELET VOLUME 9.5 fL (7.4-10.4); MONOCYTES 7.7 % (2-11); NEUTROPHILS 71.4 % (40-80); PLATELET COUNT 408 10x3/uL (130-400); RBC 4.19 10x6/uL (4.00-5.40); RDW 13.7 % (11.5-14.5)
[2020-03-14 04:48] LABS: ALBUMIN 3.3 g/dL (3.4-5.0); ALKALINE PHOSPHATASE 69 U/L (30-120); BILIRUBIN - TOTAL 0.33 mg/dL (0.2-1.3); CALCIUM 8.8 mg/dL (8.5-10.1); CARBON DIOXIDE 24.6 mmol/L (21.0-32.0); CHLORIDE - SERUM 106 mmol/L (98-107); CREATININE - SERUM 0.8 mg/dL (0.6-1.3); GLUCOSE 95 mg/dL (74-106); POTASSIUM - SERUM 3.5 mmol/L (3.5-5.1); PROTEIN - SERUM 6.8 g/dL (6.4-8.2); SODIUM 139 mmol/L (136-145); eGFR NON AFRICAN AMERICAN > 90 mL/min (90-120)
[2020-03-14 04:50] LABS: ALT (SGPT) 27 U/L (10-68); CALC OSMOLALITY 275 mosm/kg (275-300); UREA NITROGEN 8 mg/dL (7-18)
--- NOTE | 2020-03-14 07:15 | NUR ---
REC'D N BED AWAKE AND ALERT. RESP EVEN AND UNLABORED WITH NO DISTRESS NOTED. CAN EXPRESS NEEDS AND WANTS. C/O LEFT KNEE PAIN. ASSESSMENT COMPLETED. C/L IN REACH AT BEDSIDE.
--- NOTE | 2020-03-14 08:40 | NUR ---
MEDICATED WITH MOPRHINE PER ORDERS AT THIS TIME FOR C/O RIGHT KNEE PAIN. C/L IN REACH AT BEDSIDE
--- NOTE | 2020-03-14 12:05 | NUR ---
I have reviewed this patient and I concur with the Shift Assessment completed by the Licensed Practical Nurse today this shift.
--- NOTE | 2020-03-14 12:46 | NUR ---
C/O RIGHT KNEE PAIN WAS MEDICATED WITH MORPHINE PER ORDERS. C/L IN REACH AT BEDSIDE.
[2020-03-14 13:08] LABS: PROTEIN - BODY FLUID 5.1 G/DL
[2020-03-14 14:48] LABS: MACROPHAGES BF 1 %; NEUT - BF 84 %
--- NOTE | 2020-03-14 16:48 | NUR ---
WAS MEDICATED WITH MORPHINE AT THIS TIME FOR C/O PAIN TO RIGHT NIGHT.
--- NOTE | 2020-03-14 19:28 | NUR ---
PT LYING IN BED WATCHING TV AND ON CELL PHONE. CL IN REACH. DENIES NEEDS AT THIS TIME. BED IN LOW SIDE RAILS X2. A/O X4. UP AD LES. RESP EVEN AND UNLABORED. WILL CONTINUE TO MONITOR.
--- NOTE | 2020-03-14 20:15 | OP ---
PATIENT NAME: JUANI FERMIN MEDICAL RECORD: [id number] :[birth year] LOCATION:D.MS Walsh2232 ADMISSION DATE:03/13/20 SURGEON: CHINMAY CARDOZA DO DATE OF OPERATION: 03/14/2020 PROCEDURE PERFORMED: Right knee aspiration. PREOPERATIVE DIAGNOSIS: Possible right septic knee. POSTOPERATIVE DIAGNOSIS: Possible right septic knee. INDICATIONS: Ms. Fermin is a 19-year-old female who underwent ACL surgery approximately 6 weeks ago and then another surgery a few days ago and then found out she was infected with chlamydia, not from the knee, but her knee was then swelling and painful and she showed up to the ER here, it was all done in another facility and wanted a second opinion. She had a fever and a white count and was admitted, put on antibiotics. I told them that I would aspirate her knee today. I informed her the risks including infection, continued pain and it would be painful. DESCRIPTION OF PROCEDURE: I then prepped the right lateral knee with Betadine and then inserted an 18-gauge needle with 60 cc syringe attached to it and aspirated approximately 30 mL of sanguinous fluid. I then removed the needle and placed a 4 x 4 and Roc wrap over that and sent it for cell count, Gram stain, cultures including fungal cultures and crystals and we would await that. She tolerated the procedure well and we will await the cultures. TRANSINT:[id number] Voice Confirmation ID: [id number] DOCUMENT ID: [id number] CHINMAY CARDOZA DO at 2015 CC: [id number] DICTATION DATE: 03/14/20 0845 SCADA TECHNICIAN: 03/14/20 1546 ADM IN [facility] [address] [place] [id number]
--- NOTE | 2020-03-14 22:55 | NUR ---
PT REFUSED NICOTINE PATCH ON DAY SHIFT. PT CHANGED MIND AND THIS NURSE PUT PATCH ON RIGHT SHOULDER. WCTM CL IN REACH
--- NOTE | 2020-03-15 04:30 | NUR ---
I have reviewed this patient and I concur with the Shift Assessment completed by the Licensed Practical Nurse today this shift.
[2020-03-15 05:25] VITALS: BP 126/82
[2020-03-15 06:39] LABS: BASOPHILS 0.2 % (0-2); EOSINOPHILS 3.4 % (0-7); HEMATOCRIT 34.6 % (36.0-48.0); HEMOGLOBIN 10.9 g/dL (12-16); IMMATURE GRANULOCYTES 0.2 % (0-5); LYMPHOCYTES 23.9 % (15-50); MCH 26.6 pg (26.0-34.0); MCHC 31.5 g/dL (31.0-37.0); MEAN PLATELET VOLUME 10.3 fL (7.4-10.4); MONOCYTES 10.5 % (2-11); NEUTROPHILS 61.8 % (40-80); PLATELET COUNT 340 10x3/uL (130-400); RDW 13.7 % (11.5-14.5); WBC 6.2 10x3/uL (4.8-10.8)
[2020-03-15 06:43] LABS: CALC OSMOLALITY 272 mosm/kg (275-300); CALCIUM 8.4 mg/dL (8.5-10.1); CARBON DIOXIDE 24.3 mmol/L (21.0-32.0); CHLORIDE - SERUM 103 mmol/L (98-107); CREATININE - SERUM 0.8 mg/dL (0.6-1.3); GLUCOSE 91 mg/dL (74-106); MCV 84.4 fL (80.0-100.0); PHOSPHOROUS 4.8 mg/dL (2.5-4.9); POTASSIUM - SERUM 3.7 mmol/L (3.5-5.1); SODIUM 137 mmol/L (136-145); UREA NITROGEN 11 mg/dL (7-18); eGFR NON AFRICAN AMERICAN > 90 mL/min (90-120)
[2020-03-15 08:00] VITALS: BP 129/76
--- NOTE | 2020-03-15 12:11 | MORECARE ---
CASE MANAGEMENT DISCHARGE SUMMARY PATIENT: JUANI FERMIN UNIT: [id number] ADM DATE: 03/13/20 AGE: 19 : [birth year] SEX: F ROOM/BED: D.2232 AUTHOR: ROBSON CROOKS PHYSICIAN: REFERRING PHYSICIAN: CHINMAY RAMACHANDRAN MD DATE OF SERVICE: 03/15/20 Discharge Plan Patient Name: JUANI FERMIN Facility: [facility]:[place] : 2000 Planned Disposition: Anticipated Discharge Date: Discharge Date: Expected LOS: Initial Reviewer: [email or web address] Initial Review Date: 03/14/2020 Generated: 03/15/20 1:10 pm Comments DCP- Discharge Planning Updated by [email or web address]: Judy Delvalle on 03/15/20 11:[address] Patient Name: JUANI FERMIN Admission Status: ER Accout number: [id number] Admission Date: 03-13-2020 : 2000 Admission Diagnosis: Attending: CHINMAY RAMACHANDRAN Current LOS: 2 Anticipated DC Date: Planned Disposition: Primary Insurance: [facility] [employer]GED MEDICAID Discharge Planning Comments: CM met with patient at bedside after explaining CM role and obtaining verbal consent. CM discussed availability / needs of home health, REHAB and medical equipment. PATIENT DENIES ANY DISCHARGE NEEDS AT THIS TIME. CM WILL CONTINUE TO FOLLOW AND ASSIST NEEDED. Law Office Manager: Judy Delvalle DCPIA - Discharge Planning Initial Assessment Updated by [email or web address]: Judy Delvalle on 03/15/20 12:04 pm * Is the patient Alert and Oriented? Yes * PCP [facility] * Pharmacy [facility] * Preadmission Environment Home with Family * ADLs Independent * Other Equipment [employer] * Community resources currently utilized None * Additional services required to return to the preadmission environment? No * Can the patient safely return to the preadmission environment? Yes * Has this patient been hospitalized within the prior 30 days at any hospital? No Patient Name: JUANI FERMIN Page [id number] at 1211 All edits/amendments must be made on the electronic document DICTATION DATE: 03/15/20 1210 DETAIL DRAFTER: JADA 03/15/20 1210 RPT#: [id number] DC DATE: STATUS: ADM IN [facility] [address] [place] [address] END OF REPORT
[2020-03-15 12:42] VITALS: BP 118/72
--- NOTE | 2020-03-15 12:45 | NUR ---
PT REQUESTED PAIN MDICATION, STATED PAIN IS AT A 6 UNTIL SHE STARTS TO MOVE. ADMINISTERED PRN PAIN MEDICATION WITH SCHDEULED MEDS
--- NOTE | 2020-03-15 12:47 | NUR ---
I have reviewed this patient and I concur with the Shift Assessment completed by the Licensed Practical Nurse today this shift.
[2020-03-15 14:10] LABS: FUNGUS STAIN Final report (())
[2020-03-15 16:00] VITALS: BP 115/66
--- NOTE | 2020-03-15 18:57 | NUR ---
PT C/O SORE THROA AND BODY ACHES, PT TEMP IS 100.1 WILL ADMINISTER PRN TYLENOL
--- NOTE | 2020-03-15 19:30 | NUR ---
PT IN BED, AAO X 3, RESP EVEN AND UNLABORED. NO DISTRESS NOTED, CL IN REACH, SR UP X 2.
[2020-03-15 20:00] VITALS: BP 119/74
--- NOTE | 2020-03-15 22:15 | NUR ---
PT IV TO LEFT AC LEAKING, D/C'D, NEW 20G INSERTED TO LEFT FOREARM AT THIS TIME.
[2020-03-16] VITALS: BP 107/53
--- NOTE | 2020-03-16 03:12 | NUR ---
I have reviewed this patient and I concur with the Shift Assessment completed by the Licensed Practical Nurse today this shift.
[2020-03-16 04:00] VITALS: BP 123/76
[2020-03-16 05:27] LABS: BASOPHILS 0.3 % (0-2); EOSINOPHILS 2.5 % (0-7); HEMATOCRIT 33.7 % (36.0-48.0); HEMOGLOBIN 10.5 g/dL (12-16); IMMATURE GRANULOCYTES 0.1 % (0-5); LYMPHOCYTES 24.7 % (15-50); MCHC 31.2 g/dL (31.0-37.0); MCV 83.4 fL (80.0-100.0); MEAN PLATELET VOLUME 9.6 fL (7.4-10.4); MONOCYTES 10.5 % (2-11); NEUTROPHILS 61.9 % (40-80); RBC 4.04 10x6/uL (4.00-5.40); RDW 13.4 % (11.5-14.5); WBC 6.9 10x3/uL (4.8-10.8)
[2020-03-16 05:35] LABS: PLATELET COUNT 414 10x3/uL (130-400)
[2020-03-16 05:47] LABS: CALC OSMOLALITY 276 mosm/kg (275-300); CALCIUM 8.6 mg/dL (8.5-10.1); CARBON DIOXIDE 25.7 mmol/L (21.0-32.0); CHLORIDE - SERUM 104 mmol/L (98-107); CREATININE - SERUM 0.8 mg/dL (0.6-1.3); GLUCOSE 102 mg/dL (74-106); PHOSPHOROUS 4.6 mg/dL (2.5-4.9); POTASSIUM - SERUM 3.6 mmol/L (3.5-5.1); SODIUM 139 mmol/L (136-145); UREA NITROGEN 11 mg/dL (7-18); eGFR NON AFRICAN AMERICAN > 90 mL/min (90-120)
--- NOTE | 2020-03-16 07:58 | NUR ---
PT STATED IV IS HURTING HER THIS MORNING, PT IV JUST RESITED BY PM NURSE, WILL RESITE AGAIN.
[2020-03-16 09:15] VITALS: BP 115/66
[2020-03-16 12:36] VITALS: BP 130/74
--- NOTE | 2020-03-16 13:59 | NUR ---
I have reviewed this patient and I concur with the Shift Assessment completed by the Licensed Practical Nurse today this shift.
[2020-03-16 17:01] VITALS: BP 132/83
[2020-03-16 20:00] VITALS: BP 125/80
--- NOTE | 2020-03-16 22:53 | NUR ---
ASSESSED AT THE BEGINNING OF THE SHIFT. PT IS ALERT AND ORIENTED, ABLE TO VERBALIZE NEEDS. RITHT KNEE WITH EDEMA AND POST ASPIRATION. TEMP WAS 99.6 AT THE 1ST SET OF VITAL SIGNS AND SHE REQUESTED/RECEIVED TYLENOL AT ABOUT 2200 WHEN SHE ALSO RECEIVED MORPHINE. SHE IS WORRIED THAT SHE NEEDS TO BE TESTED FOR THE COVID VIRUS, WE WILL TELL HER MD IN THE MORNING SO HE CAN TALK WITH HER.
[2020-03-17] VITALS: BP 129/75
[2020-03-17 04:00] VITALS: BP 109/70
[2020-03-17 05:33] LABS: BASOPHILS 0.1 % (0-2); EOSINOPHILS 2.2 % (0-7); HEMATOCRIT 33.8 % (36.0-48.0); HEMOGLOBIN 10.6 g/dL (12-16); IMMATURE GRANULOCYTES 0.4 % (0-5); LYMPHOCYTES 29.2 % (15-50); MCH 26.2 pg (26.0-34.0); MCHC 31.4 g/dL (31.0-37.0); MCV 83.5 fL (80.0-100.0); MEAN PLATELET VOLUME 9.7 fL (7.4-10.4); MONOCYTES 10.3 % (2-11); NEUTROPHILS 57.8 % (40-80); PLATELET COUNT 421 10x3/uL (130-400); RBC 4.05 10x6/uL (4.00-5.40); RDW 13.4 % (11.5-14.5); WBC 7.3 10x3/uL (4.8-10.8)
[2020-03-17 05:47] LABS: CALC OSMOLALITY 277 mosm/kg (275-300); CARBON DIOXIDE 28.7 mmol/L (21.0-32.0); CHLORIDE - SERUM 103 mmol/L (98-107); CREATININE - SERUM 0.9 mg/dL (0.6-1.3); GLUCOSE 110 mg/dL (74-106); MAGNESIUM - SERUM 2.1 mg/dL (1.8-2.4); PHOSPHOROUS 4.7 mg/dL (2.5-4.9); POTASSIUM - SERUM 3.9 mmol/L (3.5-5.1); SODIUM 139 mmol/L (136-145); UREA NITROGEN 10 mg/dL (7-18); eGFR NON AFRICAN AMERICAN 84 mL/min (90-120)
--- NOTE | 2020-03-17 08:00 | NUR ---
ALERT AND ORIENTED X4. ERRYTHEMA WITH EDEMA NOTED TO RIGHT KNEE WITH LIMITED ROM NOTED. PEDAL PULSES NOTED. MORPHINE GIVEN PRN FOR PAIN MANAGEMENT 04/24 AND EFFECTIVE. IVF INFUSING TO LEFT FOREARM AT PRESCRIBED RATE. ENCOURAGED TO USE CALL LIGHT FOR ASSSIT.
[2020-03-17 11:47] VITALS: BP 126/84
[2020-03-17] MEDS ORDERED: NICODERM CQ1 EAC3 TOPICAL (12:19)
--- NOTE | 2020-03-17 13:52 | MORECARE ---
CASE MANAGEMENT DISCHARGE SUMMARY PATIENT: JUANI FERMIN UNIT: [id number] ADM DATE: 03/13/20 AGE: 19 : [birth year] SEX: F ROOM/BED: D.2232 AUTHOR: DAKSHADOC PHYSICIAN: REFERRING PHYSICIAN: CHINMAY RAMACHANDRAN MD DATE OF SERVICE: 03/17/20 Discharge Plan Patient Name: JUANI FERMIN Facility: [facility]:[place] : 2000 Planned Disposition: Anticipated Discharge Date: Discharge Date: Expected LOS: Initial Reviewer: [email or web address] Initial Review Date: 03/14/2020 Generated: 03/17/20 2:51 pm Comments DCP- Discharge Planning Updated by [email or web address]: Judy Delvalle on 03/17/20 12:[address] Patient Name: JUANI FERMIN Admission Status: ER Accout number: [id number] Admission Date: 03-13-2020 : 2000 Admission Diagnosis:PAIN IN RIGHT KNEE Attending: CHINMAY RAMACHANDRAN Current LOS: 4 Anticipated DC Date: Planned Disposition: Primary Insurance: [employer]ED [employer]ICA[employer] Discharge Planning Comments: WRITTEN ORDER SENT WITH PATIENT FOR OUTPATIENT PT. MY NUMBER WAS GIVEN TO HER TO CALL ME BY FRIDAY WITH WHAT PT SHE WANTS TO USE AND I WILL FAX ORDER TO THEM. ORDER SENT WITH PATIENT ALSO. SHE SAID SHE WILL SEE WHAT PT IS CLOSEST TO HER. TODAY IS A HOLIDAY THEREFORE SHE WILL HAVE TO WAIT UNTIL FRIDAY TO SET IT UP. CM TO FOLLOW AND ASSIST NEEDED. FAMILY MEMBER HERE FOR TRANSPORT HOME. Inside Polisher: Judy Delvalle DCP- Discharge Planning Updated by [email or web address]: Judy Delvalle on 03/15/20 11:[address] Patient Name: JUANI FERMIN Admission Status: ER Accout number: [id number] Admission Date: 03-13-2020 : 2000 Admission Diagnosis: Attending: CHINMAY RAMACHANDRAN Current LOS: 2 Anticipated DC Date: Planned Disposition: Primary Insurance: [employer]ICA[employer] Discharge Planning Comments: CM met with patient at bedside after explaining CM role and obtaining verbal consent. CM discussed availability / needs of home health, REHAB and medical equipment. PATIENT DENIES ANY DISCHARGE NEEDS AT THIS TIME. CM WILL CONTINUE TO FOLLOW AND ASSIST NEEDED. Inside Polisher: Judy Delvalle DCPIA - Discharge Planning Initial Assessment Updated by [email or web address]: Judy Delvalle on 03/15/20 12:04 pm * Is the patient Alert and Oriented? Yes * PCP [facility] * Pharmacy [facility] * Preadmission Environment Home with Family * ADLs Independent * Other Equipment [employer] * Community resources currently utilized None * Additional services required to return to the preadmission environment? No * Can the patient safely return to the preadmission environment? Yes * Has this patient been hospitalized within the prior 30 days at any hospital? No Last DP export: 03/15/20 11:11 am Patient Name: JUANI FERMIN Page [id number] at 1352 All edits/amendments must be made on the electronic document DICTATION DATE: 03/17/20 1352 GYMNASTIC COACH: JADA 03/17/20 1352 RPT#: [id number] DC DATE: STATUS: ADM IN [facility] [address] [place] [address] END OF REPORT
--- NOTE | 2020-03-17 13:56 | NUR ---
IV DISCONTINUED AND VERBALIZED UNDERSTANDING OF DISCHARGE INSTRUCTIONS. STABEL AT TIME OF DEPARTURE UNDER CARE OF FAMILY.
--- NOTE | 2020-03-18 09:11 | MORECARE ---
CASE MANAGEMENT DISCHARGE SUMMARY PATIENT: JUANI FERMIN UNIT: [id number] ADM DATE: 03/13/20 AGE: 19 : [birth year] SEX: F ROOM/BED: D.2232 AUTHOR: DAKSHADOC PHYSICIAN: REFERRING PHYSICIAN: CHINMAY RAMACHANDRAN MD DATE OF SERVICE: 03/18/20 Discharge Plan Patient Name: JUANI FERMIN Facility: [facility]:[place] : 2000 Planned Disposition: Anticipated Discharge Date: Discharge Date: 03/17/2020 Expected LOS: Initial Reviewer: [email or web address] Initial Review Date: 03/14/2020 Generated: 03/18/20 10:11 am Comments DCP- Discharge Planning Updated by [email or web address]: Judy Delvalle on 03/17/20 12:[address] Patient Name: JUANI FERMIN Admission Status: ER Accout number: [id number] Admission Date: 03-13-2020 : 2000 Admission Diagnosis:PAIN IN RIGHT KNEE Attending: CHINMAY RAMACHANDRAN Current LOS: 4 Anticipated DC Date: Planned Disposition: Primary Insurance: [employer]ED MED[employer] Discharge Planning Comments: WRITTEN ORDER SENT WITH PATIENT FOR OUTPATIENT PT. MY NUMBER WAS GIVEN TO HER TO CALL ME BY FRIDAY WITH WHAT PT SHE WANTS TO USE AND I WILL FAX ORDER TO THEM. ORDER SENT WITH PATIENT ALSO. SHE SAID SHE WILL SEE WHAT PT IS CLOSEST TO HER. TODAY IS A HOLIDAY THEREFORE SHE WILL HAVE TO WAIT UNTIL FRIDAY TO SET IT UP. CM TO FOLLOW AND ASSIST NEEDED. FAMILY MEMBER HERE FOR TRANSPORT HOME. Aging Room Hand: Judy Delvalle DCP- Discharge Planning Updated by [email or web address]: Judy Delvalle on 03/15/20 11:[address] Patient Name: JUANI FERMIN Admission Status: ER Accout number: [id number] Admission Date: 03-13-2020 : 2000 Admission Diagnosis: Attending: CHINMAY RAMACHANDRAN Current LOS: 2 Anticipated DC Date: Planned Disposition: Primary Insurance: [employer]ED [employer]ICA[employer] Discharge Planning Comments: CM met with patient at bedside after explaining CM role and obtaining verbal consent. CM discussed availability / needs of home health, REHAB and medical equipment. PATIENT DENIES ANY DISCHARGE NEEDS AT THIS TIME. CM WILL CONTINUE TO FOLLOW AND ASSIST NEEDED. Aging Room Hand: Judy Delvalle DCPIA - Discharge Planning Initial Assessment Updated by [email or web address]: Judy Delvalle on 03/15/20 12:04 pm * Is the patient Alert and Oriented? Yes * PCP [facility] * Pharmacy [facility] * Preadmission Environment Home with Family * ADLs Independent * Other Equipment [employer] * Community resources currently utilized None * Additional services required to return to the preadmission environment? No * Can the patient safely return to the preadmission environment? Yes * Has this patient been hospitalized within the prior 30 days at any hospital? No Last DP export: 03/17/20 12:52 pm Patient Name: JUANI FERMIN Page [phone] at 0911 All edits/amendments must be made on the electronic document DICTATION DATE: 03/18/20910 CORRECTIONS COUNSELOR: JADA 03/18/20910 RPT#: [id number] DC DATE:03/17/20 STATUS: DIS IN [facility] [address] [place] [address] END OF REPORT
== END 2020-03-17 13:56 | disposition home or self-care (01) | DRG 549 ==
LOC: D.ER 20:36 → D.MS 23:00
PROVIDERS: Family Medicine; Orthopaedic Surgery; ADMIT Family Medicine; ATTEND Family Medicine
PROC: 0S9C3ZZ Drainage of Right Knee Joint, Percutaneous Approach (ICD-10-PCS; principal; 2020-03-14)
DX: M00.861 Arthritis due to other bacteria, right knee (principal); F17.203 Nicotine dependence unspecified, with withdrawal; A64 Unspecified sexually transmitted disease; D64.9 Anemia, unspecified

== ENCOUNTER 2020-06-03 17:22 | Emergency (ER) | payer OTHER ==
[~2020-06-03] VITALS: Ht 172.7 cm; Wt 86.4 kg
[~2020-06-03 17:22] MED LIST changes: +NICODERM CQ1 EAC3 TOPICAL; +ZITHROMAX500 MG PO
[2020-06-03 17:27] VITALS: BP 135/95; Ht 172.7 cm; Wt 86.4 kg
[2020-06-03] MEDS ORDERED: NAPROSYN500 MG PO (19:46)
== END 2020-06-03 20:15 | disposition home or self-care (01) ==
LOC: D.ER 17:22
DX: S90.122A Contusion of left lesser toe(s) without damage to nail, initial encounter (principal); X58.XXXA Exposure to other specified factors, initial encounter; M79.671 Pain in right foot

== ENCOUNTER → 2020-06-29 | Emergency (ER) | payer OTHER ==
[~2020-06-29] VITALS: Ht 172.7 cm; Wt 90.9 kg
[~2020-06-29] MED LIST changes: +MEDROL DOSE PACK4 MG PO; +NAPROSYN500 MG PO
[2020-06-29 06:46] VITALS: BP 114/85; Ht 172.7 cm; Wt 90.9 kg
[2020-06-29 07:14] LABS: BASOPHILS 0.4 % (0-2); EOSINOPHILS 4.8 % (0-7); HEMATOCRIT 37.2 % (36.0-48.0); HEMOGLOBIN 11.7 g/dL (12-16); IMMATURE GRANULOCYTES 0.1 % (0-5); LYMPHOCYTES 25.9 % (15-50); MCH 26.2 pg (26.0-34.0); MCHC 31.5 g/dL (31.0-37.0); MCV 83.2 fL (80.0-100.0); MEAN PLATELET VOLUME 9.9 fL (7.4-10.4); NEUTROPHILS 62.8 % (40-80); PLATELET COUNT 296 10x3/uL (130-400); RBC 4.47 10x6/uL (4.00-5.40); RDW 14.2 % (11.5-14.5); WBC 6.7 10x3/uL (4.8-10.8)
[2020-06-29 07:30] LABS: CALC OSMOLALITY 281 mosm/kg (275-300); CALCIUM 8.4 mg/dL (8.5-10.1); CARBON DIOXIDE 22.7 mmol/L (21.0-32.0); CHLORIDE - SERUM 106 mmol/L (98-107); CREATININE - SERUM 0.7 mg/dL (0.6-1.3); GLUCOSE 93 mg/dL (74-106); POTASSIUM - SERUM 3.5 mmol/L (3.5-5.1); SODIUM 142 mmol/L (136-145); UREA NITROGEN 9 mg/dL (7-18); eGFR NON AFRICAN AMERICAN > 90 mL/min (90-120)
[2020-06-29 07:37] LABS: ALBUMIN 3.6 g/dL (3.4-5.0); ALKALINE PHOSPHATASE 75 U/L (30-120); ALT (SGPT) 25 U/L (10-68); BILIRUBIN - TOTAL 0.38 mg/dL (0.2-1.3); HCG SERUM NEGATIVE (NEGATIVE); PROTEIN - SERUM 6.7 g/dL (6.4-8.2)
== END | disposition home or self-care (01) ==
LOC: D.ER 06:39
PROVIDERS: Emergency Medicine
DX: J11.1 Influenza due to unidentified influenza virus with other respiratory manifestations (principal); J45.909 Unspecified asthma, uncomplicated

== ENCOUNTER 2020-12-12 21:25 | Emergency (ER) | payer OTHER ==
[~2020-12-12] VITALS: Ht 172.7 cm; Wt 84.1 kg
[~2020-12-12 21:25] MED LIST changes: +ACETAMINOPHEN500 M1 PO; +CYCLOBENZAPRINE10 MG PO; +IBUPROFEN800 MG PO
[2020-12-12 21:32] VITALS: Ht 172.7 cm; Wt 84.1 kg
[2020-12-12 21:59] LABS: UDS - AMPHET POSITIVE QUAL (NEGATIVE); UDS - BARB NEGATIVE QUAL (NEGATIVE); UDS - BENZO NEGATIVE QUAL (NEGATIVE); UDS - COCAINE NEGATIVE QUAL (NEGATIVE); UDS - OPIATE POSITIVE QUAL (NEGATIVE); UDS - PCP NEGATIVE QUAL (NEGATIVE); UDS - THC NEGATIVE QUAL (NEGATIVE)
[2020-12-12 22:06] LABS: BILIRUBIN NEGATIVE (NEGATIVE); HCG URINE NEGATIVE (NEGATIVE); KETONE LARGE mg/dL (NEGATIVE); NITRITE NEGATIVE (NEGATIVE)
[2020-12-12 22:07] LABS: BACTERIA FEW HPF (NONE SEEN); WHITE CELLS - URINE 0-5 HPF (0-4)
[2020-12-12 22:08] LABS: BASOPHILS 0.4 % (0-2); EOSINOPHILS 0.2 % (0-7); HEMOGLOBIN 11.8 g/dL (12-16); IMMATURE GRANULOCYTES 0.4 % (0-5); LYMPHOCYTE ABS# 0.63 10x3/uL (1.18-3.74); LYMPHOCYTES 5.7 % (15-50); MCH 27.3 pg (26.0-34.0); MCHC 32.8 g/dL (31.0-37.0); MCV 83.3 fL (80.0-100.0); MEAN PLATELET VOLUME 9.6 fL (7.4-10.4); MONOCYTES 2.9 % (2-11); NEUTROPHIL ABS# 9.94 10x3/uL (1.56-6.13); NEUTROPHILS 90.4 % (40-80); RBC 4.32 10x6/uL (4.00-5.40); RDW 13.9 % (11.5-14.5)
[2020-12-12 22:14] LABS: PLATELET COUNT 231 10x3/uL (130-400)
[2020-12-12 22:18] LABS: CALC OSMOLALITY 266 mosm/kg (275-300); CALCIUM 8.6 mg/dL (8.5-10.1); CARBON DIOXIDE 21.1 mmol/L (21.0-32.0); CHLORIDE - SERUM 102 mmol/L (98-107); GLUCOSE 87 mg/dL (74-106); POTASSIUM - SERUM 3.3 mmol/L (3.5-5.1); SODIUM 134 mmol/L (136-145); UREA NITROGEN 12 mg/dL (7-18); eGFR NON AFRICAN AMERICAN 73 mL/min (90-120)
[2020-12-12 22:26] LABS: ALBUMIN 3.4 g/dL (3.4-5.0); ALKALINE PHOSPHATASE 93 U/L (30-120); ALT (SGPT) 35 U/L (10-68); AMYLASE - SERUM 92 U/L (25-115); LIPASE 93 U/L (73-393); PROTEIN - SERUM 6.7 g/dL (6.4-8.2); TROPONIN-I < 0.017 ng/mL (0.000-0.060)
[2020-12-13] MEDS ORDERED: CLEOCIN HCL300 MG PO (04:03)
[2020-12-13 04:19] VITALS: BP 120/70
== END 2020-12-13 04:21 | disposition home or self-care (01) ==
LOC: D.ER 21:25
PROVIDERS: Family Medicine
DX: F19.10 Other psychoactive substance abuse, uncomplicated (principal); E86.0 Dehydration; R51.9 Headache, unspecified; J45.909 Unspecified asthma, uncomplicated; R11.0 Nausea